=== PATIENT | female | born 2000 | race Two or more races ===

== ENCOUNTER 2020-02-14 18:21 | Emergency (ER) | payer BC, OTHER ==
[~2020-02-14] VITALS: Ht 165.1 cm; Wt 75.0 kg
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
--- NOTE | 2020-02-14 18:46 | NUR ---
PER REPORT PT DENIES PSYCH HX, "ONLY SOME DEPRESSION" NO MEDS.
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
[2020-02-14 19:40] LABS: BASOPHILS # (AUTO) 0.05 x10^3/uL (0-0.1); BASOPHILS % (AUTO) 1 % (0-1); EOSINOPHILS # (AUTO) 0.05 x10^3/uL (0-0.4); EOSINOPHILS % (AUTO) 1 % (1-7); LYMPHOCYTES # (AUTO) 2.21 x10^3/uL (1-3.4); LYMPHOCYTES % (AUTO) 20 % (22-44); MD NO; MEAN CORPUSCULAR HEMOGLOBIN 29.9 pg (27.0-34.8); MEAN CORPUSCULAR HGB CONC 33.5 g/dL (32.4-35.8); MEAN CORPUSCULAR VOLUME 89.1 fL (80-100); MEAN PLATELET VOLUME 8.3 fL (7.4-10.4); MONOCYTES # (AUTO) 0.76 x10^3/uL (0.2-0.8); MONOCYTES % (AUTO) 7 % (2-9); NEUTROPHILS % (AUTO) 73 % (42-75); PLATELET COUNT 274 x10^3/uL (130-400); RED BLOOD COUNT 4.72 x10^6/uL (3.82-5.3); RED CELL DISTRIBUTION WIDTH 13.1 % (9.6-15.2)
[2020-02-14 19:47] LABS: ALBUMIN 3.7 g/dL (3.4-5.0); ANION GAP 6 mmol/L (5-15); CALCIUM 8.6 mg/dL (8.5-10.1); CHLORIDE 110 mmol/L (98-107); CREATININE 0.72 mg/dL (0.55-1.02)
[2020-02-14 19:49] LABS: SALICYLATE LEVEL < 1.7 mg/dL (2.8-20.0)
[2020-02-14 19:54] LABS: MICROSCOPIC INDICATED
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
--- NOTE | 2020-02-14 20:04 | NUR ---
TELEPSYCH TO ROOM NOW. PT REMAINS IN BED AND IN VIEW OF SITTER.
[2020-02-14] MEDS ORDERED: BIRTH CONTROL (20:28)
--- NOTE | 2020-02-14 20:29 | NUR ---
LATE ENTRY FOR 191: ALL BELONGINGS IN LOCKER AND ROOM SECURED.
--- NOTE | 2020-02-14 21:02 | NUR ---
PT PROVIDED FOOD.
[2020-02-14 21:07] LABS: AMPHETAMINE SCREEN, URINE Negative (Negative); BARBITURATE SCREEN, URINE Negative (Negative); BENZODIAZEPINE SCREEN, URINE Negative (Negative); CANNABINOID SCREEN, URINE Negative (Negative); COCAINE SCREEN, URINE Negative (Negative); METHADONE SCREEN, URINE Negative (Negative); OPIATE SCREEN, URINE Negative (Negative)
--- NOTE | 2020-02-14 21:27 | NUR ---
PT CRYING, MAKING STATEMENTS OF PARANOIA. TELEHEALTH HAS BEEN COMPLETE, ERP TO BEDSIDE NOW.
--- NOTE | 2020-02-14 21:56 | NUR ---
PT TO HAVE REEVALUATION WITH TELESPYCH AFTER THIS RN SHARED INFORMATION THAT WAS GIVEN FROM THE SISTER. PT CURRENTLY CRYING.
--- NOTE | 2020-02-14 23:08 | NUR ---
AWAITING TELEPSYCH, MACHINE REMAINS IN ROOM, PT SITTING IN BED, NO LONGER CRYING.
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
--- NOTE | 2020-02-14 23:36 | NUR ---
ALL NEEDS MET AT THIS TIME. CALLED FOR HOSPITAL BED.
[2020-02-14] MEDS ORDERED: ACETAMINOPHEN 500 MG TABLET ONE (23:52)
[2020-02-15] MEDS ORDERED: ACETAMINOPHEN 500 MG TABLET PO ONE
--- NOTE | 2020-02-15 02:24 | NUR ---
PT CONDITION REMAINS UNCHANGED, REMAINS IN VIEW OF SITTER.
--- NOTE | 2020-02-15 03:00 | NUR ---
PT AMBULATORY TO BATHROOM, STEADY GAIT. PT PLACED ON HOSPITAL BED.
--- NOTE | 2020-02-15 03:24 | NUR ---
MT: PSYCH PACKET SENT TO [facility]
--- NOTE | 2020-02-15 04:44 | NUR ---
PT LAYING IN BED SLEEPING, REMAINS IN VIEW OF THE SITTER.
--- NOTE | 2020-02-15 05:21 | NUR ---
PT CONDITION REMAINS UNCHANGED.
--- NOTE | 2020-02-15 07:42 | NUR ---
BEDSIDE REPORT FROM YOSHI KINGSTON, PT SLEEPING IN HOSPITAL BED WITH SITTER AT BEDSIDE. BREAKFAST TRAY ORDERED
--- NOTE | 2020-02-15 08:43 | NUR ---
PT WAS GIVEN BREAKFAST DIET TRAY AND IS EATING QUIETLY.
--- NOTE | 2020-02-15 12:59 | NUR ---
TOSHIA MCDONOUGH ([facility])
[2020-02-15] MEDS: OLANZAPINE 10 MG TABLET PO SCH (14:30)
--- NOTE | 2020-02-15 14:39 | NUR ---
Spoke with sister on phone,provided with update.
--- NOTE | 2020-02-15 21:00 | NUR ---
assumed care of pt. report from Lazaro KINGSTON. pt here for inability to care for self and is currently on a Legal Hold. pt is alert and able to answer questions, but seems mildly anxious. is oriented to day and situation. denies SI/SA, denies hallucinations/delusions. denies injury or pain pt has had meal tray. pt upated on POC room secure. sitter present for safety
--- NOTE | 2020-02-15 21:05 | NUR ---
pt reports that her only ppsych hx is depression Addendum: 02/15/20 at 2139 by JANICE pt reports that her only psych hx is depression pt has a hospital bed for comfort but is currently pacing in the room. offered to dim lights but pt declined
--- NOTE | 2020-02-15 22:03 | NUR ---
pt has been pacing in her room but is curretnly sitting on her bed taking PO fluids. no apparent distress room secure. sitter present for safety
--- NOTE | 2020-02-15 23:48 | NUR ---
pt continues to pace in room. no apparent distress. no new c/o. cooperative. room secure. sitter present for safety
--- NOTE | 2020-02-16 01:00 | NUR ---
pt sitting up on bed. calm, no apparent distress room secure. sitter present for safety
--- NOTE | 2020-02-16 01:34 | NUR ---
report to Mayra KINGSTON for lunch
--- NOTE | 2020-02-16 02:15 | NUR ---
pt sleeping on hospital bed in position of comfort. no apparent distress room secure. sitter present for safety
--- NOTE | 2020-02-16 03:15 | NUR ---
pt sleeping in position of comfort. no apparent distress. room secure. sitter present for safety
--- NOTE | 2020-02-16 03:56 | NUR ---
pt is sleeping at this time. no apparent distress. room secure. sitter present for safety
--- NOTE | 2020-02-16 05:05 | NUR ---
no changes. pt remains asleep in position of comfort. no apparent distress room secure. sitter present for safety
--- NOTE | 2020-02-16 06:03 | NUR ---
pt is awake and has been pacing in her room. calm. no apparent distress room secure. sitter present fo safety
--- NOTE | 2020-02-16 07:00 | NUR ---
report to Effie KINGSTON
--- NOTE | 2020-02-16 07:04 | NUR ---
REPORT RECEIVED FROM JESSEE KINGSTON. PT IS SLEEPING ON HOSPITAL BED, RESP EVEN AND UNLABORED, FRED.
--- NOTE | 2020-02-16 08:11 | NUR ---
PT COOPERATIVE W/ VS, VSS, NADN. PT RESTING ON HOSPITAL BED W/ SITTER OUTSIDE ROOM AND GARAGE DOORS DOWN FOR SAFETY. DENIES FURTHER NEEDS AT THIS TIME.
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
--- NOTE | 2020-02-16 08:26 | NUR ---
BREAKFAST TRAY DELIVERED.
[2020-02-16] MEDS ORDERED: OLANZAPINE 10 MG TABLET ONE (08:27)
[2020-02-16] MEDS: OLANZAPINE 10 MG TABLET PO SCH (08:35)
--- NOTE | 2020-02-16 09:25 | NUR ---
PT SLEEPING ON HOSPITAL BED W/ SITTER OUTSIDE ROOM AND GARAGE DOORS DOWN FOR SAFETY. RESP EVEN AND UNLABORED, JHN.
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
--- NOTE | 2020-02-16 10:42 | NUR ---
PT SLEEPING ON HOSPITAL BED W/ SITTER OUTSIDE ROOM AND GARAGE DOORS DOWN FOR SAFETY. RESP EVEN AND UNLABORED, JHN.
--- NOTE | 2020-02-16 11:17 | NUR ---
SKY SOCIAL WORK AT BEDSIDE.
--- NOTE | 2020-02-16 11:28 | NUR ---
TELEPHONE CALL TO MARYLIN MCDONOUGH [phone] PTS SISTER REQ ADDITIONAL INSURANCE INFORMATION. MARYLIN REPORTS THAT SHE WILL TRY AND GET HER PRIVATE INSURANCE AND WILL CALL BACK WITH INFO.
--- NOTE | 2020-02-16 12:17 | NUR ---
LUNCH TRAY DELIVERED.
--- NOTE | 2020-02-16 13:49 | NUR ---
PT SLEEPING ON HOSPITAL BED W/ SITTER OUTSIDE ROOM AND GARAGE DOORS DOWN FOR SAFETY. RESP EVEN AND UNLABORED, JHN.
--- NOTE | 2020-02-16 14:45 | NUR ---
PT SLEEPING ON HOSPITAL BED W/ SITTER OUTSIDE ROOM AND GARAGE DOORS DOWN FOR SAFETY. RESP EVEN AND UNLABORED, JHN.
--- NOTE | 2020-02-16 15:30 | NUR ---
PT RESTING ON HOSPITAL BED W/ SITTER OUTSIDE ROOM AND GARAGE DOORS DOWN FOR SAFETY. RESP EVEN AND UNLABORED, NADN. PROVIDED MILK PER PT REQUEST. DENIES FURTHER NEEDS AT THIS TIME.
--- NOTE | 2020-02-16 17:27 | NUR ---
PT RESTING ON HOSPITAL BED W/ SITTER OUTSIDE ROOM AND GARAGE DOORS DOWN FOR SAFETY. RESP EVEN AND UNLABORED, FRED.
--- NOTE | 2020-02-16 17:45 | NUR ---
Pt provided with meal with safety precautions.
--- NOTE | 2020-02-16 18:59 | NUR ---
REPORT GIVEN TO REBECA KINGSTON. PT SLEEPING ON HOSPITAL BED W/ SITTER OUTSIDE ROOM AND GARAGE DOORS DOWN FOR SAFETY.
--- NOTE | 2020-02-16 19:32 | NUR ---
SISTER, MARYLIN, CALLED WITH PRIVATE INSURANCE INFORMATION. PROVIDED INFO TO REGISTRATION WITH SISTER'S PHONE NUMBER
--- NOTE | 2020-02-16 19:50 | NUR ---
PT RESTING IN GURNEY WITH EYES CLOSED AT THIS TIME, NAD NOTED, BREATHING EVEN AND UNLABORED, SAFETY OF ROOM ENSURED, SITTER IN VIEW, WILL CONTINUE TO MONITOR
--- NOTE | 2020-02-16 20:59 | NUR ---
PT RESTING CALMLY IN BED AT THIS TIME, VSS, PT QUIET AND NOT RESPONDING MUCH TO QUESTIONS, LIGHTS DIMMED PER REQUEST, SAFETY OF ROOM ENSURED, SITTER IN VIEW, NO FURTHER REQUESTS
--- NOTE | 2020-02-16 22:38 | NUR ---
PT APPEARS TO BE SLEEPING IN HOSPITAL BED, NAD NOTED, BREATHING EVEN AND UNLABORED, SAFETY OF ROOM ENSURED, SITTER IN VIEW
--- NOTE | 2020-02-16 23:46 | NUR ---
PT AMBULATED TO RESTROOM AND BACK TO BED WITHOUT ISSUE, NO REQUESTS AT THIS TIME, SITTER IN VIEW FOR SAFETY
--- NOTE | 2020-02-17 00:53 | NUR ---
PT CONTINES TO SLEEP IN BED, NAD NOTED, SAFETY OF ROOM ENSURED, SITTER IN VIEW
--- NOTE | 2020-02-17 01:44 | NUR ---
PT PROVIDED WITH CRANBERRY JUICE AND GRAHMCRACKERS PER REQUEST.
--- NOTE | 2020-02-17 02:45 | NUR ---
PT RESTING AND APPEARS COMFORTABLE IN BED, NAD NOTED, BREATHING EVEN AND UNLABORED, SAFETY OF ROOM ENSURED, SITTER IN VIEW, WILL CONTINUE TO MONITOR
--- NOTE | 2020-02-17 03:50 | NUR ---
NO CHANGES, PT RESTING, SITTER IN VIEW
--- NOTE | 2020-02-17 04:55 | NUR ---
PT RESTING AND APPEARS COMFORTABLE IN BED, NAD NOTED, BREATHING EVEN AND UNLABORED, SAFETY OF ROOM ENSURED, SITTER IN VIEW, WILL CONTINUE TO MONITOR
--- NOTE | 2020-02-17 05:54 | NUR ---
NO CHANGES, PT RESTING, SITTER IN VIEW
[2020-02-17] MEDS ORDERED: OLANZAPINE 10 MG TABLET ONE (07:26)
[2020-02-17] MEDS: OLANZAPINE 10 MG TABLET PO SCH (08:32)
[2020-02-17 08:33] VITALS: BP 130/85
--- NOTE | 2020-02-17 08:33 | NUR ---
PT AWAKE AND CALM THIS AM, DENIES SI/HI. PT STATES "I JUST AM PRONE TO GETTING REALLY ANXIOUS, I HOPE THEY GIVEN ME A SCRIPT FOR THIS MED WHEN I LEAVE HERE" PT MEDICATED PER SEP, PT GIVEN MEAL TRAY, SI PRECAUTION OBSERVED. NO OTHER NEEDS AT THIS TIME
--- NOTE | 2020-02-17 10:46 | NUR ---
THROUGHPUT: PT OK TO TRANSFER TO [facility] PER SOTERO RN @ 1300 TODAY, ACCEPTED BY DR VILLALOBOS. Addendum: 02/17/20 at 1055 by MARIFER THROUGHPUT: PT OK TO TRANSFER TO [facility] PER SOTERO RN @ 1300 TODAY, ACCEPTED BY DR VILLALOBOS. PT AWAITING COURT HEARING PRIOR TO TRANSFER.
--- NOTE | 2020-02-17 10:59 | NUR ---
REPORT GIVEN TO SOTERO KINGSTON AT [facility]. DISCUSSED, PT WAS TO HAVE COURT HEARING WITH SW POTENTIALLY LIFTING LH. MARINE KINGSTON UPDATED, SW TO COME SEE PT. WILL CALL [facility] IF LH DC'D
--- NOTE | 2020-02-17 11:47 | NUR ---
CW MET WITH PT. LH CONTINUED, WILL PROCEED WITH TRANSFER TO [facility].
--- NOTE | 2020-02-17 12:05 | NUR ---
THROUGHPUT: PT TO TRANSFER TO [facility] VIA [facility] AT 1300 TODAY.
== END 2020-02-17 13:45 ==
LOC: ED 19:06 → EDBD 19:06 → ED 02-17 13:45
DX: F41.1 Generalized anxiety disorder (principal); F22 Delusional disorders
CPT/HCPCS: 36415; 80048; 80307; 81001; 82040; 84703; 85025; 87086; 99285